=== PATIENT | male | born 1985 | race Caucasian/White ===

== ENCOUNTER 2023-08-15 20:50 | Emergency (ER) | payer OTHER, SELFPAY ==
[2023-08-15 21:21] VITALS: BP 143/79; PULSE 88; RESP 16; TEMP 37.2; O2SAT 99; BMI 25.6
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
--- NOTE | 2023-08-15 22:10 | ED.NURSE ---
Arm/shoulder splint applied. CMS intact before and after.
--- OUTSIDE RECORDS SUMMARY | 2023-08-15 22:20 | XMS_ITS | Clinical Summary ---
Author Organization [facility] Address [place], [place] [address] Care Team Providers Care Heel Compressor Name Role Phone Clinic, No Pcp Or Primary Care Provider Unavaila ble Allergies No known active allergies Medications Medication Sig Dispensed Refills Start Date End Date Status FLUoxetine (PROZAC) 20 mg capsuleIndications:D epression, major, single episode, moderate (HC) Take 1 Capsule (20 mg) by mouth every morning. 30 Capsule 5 09/10/2021 Active Active Problems No known active problems Immunizations Name Administration Dates Next Due MMR 06/16/1997,11/14/1986 Tdap 12/06/2011 Family History Medical History Relation Name Comments No Known Problems Father No Known Problems Mother Relation Name Status Comments Father Alive Mother Alive Social History Tobacco Use Types Packs/Day Years Used Date Smoking Tobacco: Every Day Cigarettes 1.5 16 Smokeless Tobacco: Never Tobacco Cessation:Ready to Q uit: No; Counseling Given: Yes Alcohol Use Standard Drinks/Week Comments Yes 20 (1 standard drink = 0.6 oz pure alcohol) this is mostly on weekends. he has 2 beers nightly during the week. PHQ-2 Answer Date Recorded PHQ-2 TOTAL SCORE 4 09/10/2021 Social Connections Answer Date Recorded Frequency of Communication with Friends and Fami ly Not on file 09/10/2021 Sex and Gender Information Value Date Recorded Sex Assigned at Not on file Gender Identity Not on file Sexual Orientation Not on file Obstetrics History Last Filed Vital Signs Vital Sign Reading Time Taken Comments Blood Pressure 149/97 09/26/2021 4:30 PM CDT Pulse 112 09/26/2021 4:30 PM CDT Temperature 36.8 ??C (98.2 ??F) 09/10/2021 4:15 PM CD T Respiratory Rate 16 08/29/2016 9:00 AM CDT Oxygen Saturation 98% 09/26/2021 4:30 PM CDT Inhaled Oxygen Concentration - - Weight 90.4 kg (199 lb 6.4 oz) 09/26/2021 4:30 P M CDT Height 190.5 cm (6' 3) 09/26/2021 4:30 PM CDT Body Mass Index 24.92 09/26/2021 4:30 PM CDT Plan of Treatment Health Maintenance Due Date Last Done Comments Pneumococcal series for age 6-64 (1 of 2 - PCV) 06/11/1991 HIV for age 15-65 2000 Hepatitis C screening for ag e 18-79 06/11/2003 Tetanus booster 12/05/2021 12/06/2011 Depression screening for age 12+ 09/12/2022 09/13/19, 09/10/2021 BMI (ht and wt on same day) for age 18+ 09/26/2022 09/26/2021, 09/10/2021 COVID-19 vaccine series ( - 2022-24 season) 2022 Influenza for age 9-49 10/11/2023 Lipids for age 35-44 09/10/2026 09/10/2021, 04/19/2009, 03/27/2009, Additional history exists Tdap Completed 12/06/2011 Procedures Procedure Name Priority Date/Time Associated Diagnosis Comments LIPID PANEL W REFLEX MEASURED LDL Routine 09/10/2021 5:09 PM CDT Alcohol abuse from Last 3 Months or Most Recently Relevant to Health Maintenance Results * LIPID PANEL W REFLEX MEASURED LDL (09/10/2021 5:09 PM CDT) CHOLESTEROL,TOTAL 197 100 - 199 mg/dL 09/11/2021 10:06 PM CDT [facility] TRIGLYCERIDES 96 <150 mg/dL 09/11/2021 10:06 PM CDT [facility] HDL CHOLESTEROL 69 >40 mg/dL 10:06 PM CDT [facility] NON-HDL CHOLESTEROL 128 <145 mg/dl 09/11/2021 10:06 PM CDT [facility] CHOL/HDL RATIO 2.86 <4.50 09/11/2021 10:06 PM CDT [facility] LDL CHOLESTEROL 109 <=130 mg/dL 09/11/2021 10:06 PM CDT [facility] VLDL CHOLESTEROL 19 <=30 mg/dL 09/11/2021 10:06 PM CDT [facility] PROVIDER ORDERED STATUS RANDOM 09/11/2021 10:06 PM CDT [facility] Blood BLOOD SPECIMEN / Unknown Venipuncture / Unknown 09/10/2021 5:09 PM CDT 09/10/2021 5:14 PM CDT Niels Kowalski MD CHEMISTRY [facility] [address] [place] [address], from Last 3 Months or Most Recently Relevant to Health Maintenance Care Teams Heel Compressor Relationship Specialty Start Date End Date Clinic, No Pcp Or . PCP - General 08/29/16
== END 2023-08-15 22:25 | disposition home or self-care (01) ==
PROVIDERS: Emergency Provider Internal Medicine
DX: S43.51XA Sprain of right acromioclavicular joint, initial encounter (principal); V19.3XXA Pedal cyclist (driver) (passenger) injured in unspecified nontraffic accident, initial encounter
CPT/HCPCS: 73030; 99283